=== PATIENT | female | born 1965 | race Caucasian/White ===

== ENCOUNTER 2024-12-15 22:01 | Emergency (ER) | payer OTHER ==
[~2024-12-15] VITALS: Ht 162.6 cm; Wt 63.5 kg
[~2024-12-15 22:01] MED LIST: AMOX1TAB12 PO; CLEOCIN HCL300 MG; SINGULAIR10 MG; TRAMADOL HCL50 MG
[2024-12-15] MEDS ORDERED: WELLBUTRIN SR100 MG (22:03)
[2024-12-15 22:28] LABS: HEMATOCRIT 39.2 % (36.0-45.00); HEMOGLOBIN 13.2 g/dL (12.0-15.00); MEAN CELL VOLUME 91.4 fL (80.00-100.00); MEAN CORPUSCULAR HEMOGLOBIN 30.8 pg (27.00-32.0); MEAN CORPUSCULAR HGB CONC 33.8 g/dl (32.0-36.0); PLATELET COUNT 259 K/uL (150-450); RED BLOOD COUNT 4.29 M/uL (4.00-6.00); RED CELL DISTRIBUTION WIDTH 13.4 % (11.5-14.5)
[2024-12-15 23:16] LABS: CALCIUM 9.4 mg/dL (8.5-10.1); CREATININE SERUM 0.87 mg/dL (0.55-1.02); GFR 66.87; POTASSIUM 3.79 mEq/L (3.5-5.1); TSH 4.02 uIU/mL (0.358-3.74)
[2024-12-15 23:57] LABS: URINE APPEARANCE Clear; URINE BILIRRUBIN Negative (NEGATIVE); URINE BLOOD Negative; URINE COLOR Yellow; URINE GLUCOSE Negative (NEGATIVE); URINE KETONE Negative (NEGATIVE); URINE LEUKOCYTE Negative; URINE NITRATE Negative; URINE PROTEIN Negative (NEGATIVE)
[2024-12-15 23:58] LABS: URINE BACTERIA 29.3 uL (0.0-1933); URINE EPITHELIAL CELLS 11.2 uL (0.0-38.8); URINE RBC 3.5 uL (0.0-20.8); URINE WBC 2.2 uL (0.0-23.2)
== END 2024-12-16 04:31 ==
LOC: ER 22:01
PROVIDERS: Emergency Medicine
DX: R00.2 Palpitations (principal); R51.9 Headache, unspecified